=== PATIENT | male | born 1980 | race Caucasian/White ===

== ENCOUNTER 2025-02-05 12:20 | Emergency (ER) | payer OTHER ==
[2025-02-05] MEDS: Ondansetron 4 MG/2 ML SDV IVPUSH ONE (12:39)
[2025-02-05] MEDS: Sodium Chloride 0.9% 10 ML Syringe FLUSH PRN (12:40)
[2025-02-05 12:42] LABS: BASOPHILS ABSOLUTE AUTO 0.05 10^3/uL (0.00-0.10); BASOPHILS PERCENT AUTO 0.9 % (0.0-1.0); EOSINOPHILS ABSOLUTE AUTO 0.02 10^3/uL (0.10-0.30); EOSINOPHILS PERCENT AUTO 0.3 % (1.0-3.0); IMMATURE GRAN ABSOLUTE AUTO 0.00 10^3/uL (0.00-0.04); IMMATURE GRAN PERCENT AUTO 0.0 % (0.0-0.4); LYMPHOCYTES ABSOLUTE AUTO 2.00 10^3/uL (1.00-4.00); LYMPHOCYTES PERCENT AUTO 34.9 % (20.0-40.0); MEAN PLATELET VOLUME 10.5 fL (7.4-10.4); MONOCYTES ABSOLUTE AUTO 0.60 10^3/uL (0.10-0.80); MONOCYTES PERCENT AUTO 10.5 % (2.0-8.0); NEUTROPHILS ABSOLUTE AUTO 3.06 10^3/uL (2.50-7.00); NEUTROPHILS PERCENT AUTO 53.4 % (50.0-70.0); PLATELET COUNT,PLT 192 10^3/uL (150-400); RED BLOOD CELL COUNT 4.31 10^6/uL (4.50-6.00); RED CELL DISTRIBUTION WIDTH 13.6 % (11.5-14.5); WHITE BLOOD CELL COUNT,WBC 5.73 10^3/uL (5.00-10.00)
[2025-02-05 12:55] LABS: ALANINE AMINOTRANSFERASE,ALT 27 U/L (14-63); ASPARTATE AMNIOTRANSFERASE,AST 42 U/L (15-37); BILIRUBIN TOTAL 1.2 mg/dL (0.2-1.0); BLOOD UREA NITROGEN,BUN 5 mg/dL (7-18); CARBON DIOXIDE,CO2 22.8 mmol/L (21.0-32.0); CHLORIDE,CL 103 mmol/L (98-107); CREATININE 0.84 mg/dL (0.51-1.17); EST CRCL DRUG DOSING (CG) 127.31 mL/min; ESTIMATED GFR 111 mL/min (>=60); GLUCOSE RANDOM 100 mg/dL (70-140); POTASSIUM,K 4.0 mmol/L (3.5-5.1); PROTEIN TOTAL,TP 7.8 g/dL (6.4-8.2); SODIUM,NA 141 mmol/L (136-145)
[2025-02-05 13:04] LABS: B-TYPE NATRIURETIC PEPTIDE,BNP < 5 pg/mL (0-100)
[2025-02-05 13:17] VITALS: BP 146/102; PULSE 86
[2025-02-05] MEDS: Promethazine 25 MG in Sodium Chloride 0.9% 100 ML IV ONE (13:46)
[2025-02-05] MEDS: Iopamidol 755 Mg/ML 100 ML Bottle IV ONE (14:10)
[2025-02-05 14:14] LABS: APPEARANCE,URINE CLEAR (CLEAR); GLUCOSE,URINE NEGATIVE (NEGATIVE); OCCULT BLOOD,URINE NEGATIVE (NEGATIVE)
[2025-02-05 14:21] LABS: EPITHELIAL CELLS,URINE RARE /LPF
== END 2025-02-05 15:13 | disposition home or self-care (01) ==
LOC: KA.ED 12:20
DX: R07.89 Other chest pain (principal); R10.9 Unspecified abdominal pain; R74.01 Elevation of levels of liver transaminase levels
CPT/HCPCS: 36415; 71045; 74177; 80053; 81001; 82150; 83690; 83735; 83880; 84484; 85025; 85379; 96361; 96365; 96375; 99285-25; J2405; J2550; J7030; Q9967